=== PATIENT | male | born 1940 | race Caucasian/White ===

== ENCOUNTER 2019-08-03 08:54 | Inpatient (IN) | payer OTHER ==
[~2019-08-03] VITALS: Ht 172.7 cm; Wt 74.4 kg
[2019-08-03] MEDS ORDERED: ACETAMINOPHEN 500 MG TABLET ONE (09:30)
[2019-08-03] MEDS ORDERED: SODIUM CHLORIDE FLUSH 10ML SYR IVF ONE (09:30)
[2019-08-03] MEDS ORDERED: SODIUM CHLORIDE 0.9% 1,000ML IVBOLUS ONE ×2 (09:30→14:30)
[2019-08-03] MEDS ORDERED: ACETAMINOPHEN 500 MG TABLET PO ONE (09:30)
--- NOTE | 2019-08-03 09:37 | NUR ---
TASK RN: PT RESTING ON GURNEY. MARCOS. MEDICATED PER SEP.
--- NOTE | 2019-08-03 09:50 | NUR ---
REPORT FROM NAM PENA, ASSUME CARE OF PT AT THIS TIME. CONTINUE TO AWAIT LAB RESULTS.
[2019-08-03 09:51] LABS: MEAN CORPUSCULAR HGB CONC 33.1 g/dL (33.2-36.2); MEAN CORPUSCULAR VOLUME 87.7 fL (81-97); MEAN PLATELET VOLUME 8.3 fL (7.4-10.4); PLATELET COUNT 142 x10^3/uL (130-400); RED BLOOD COUNT 4.19 x10^6/uL (4.38-5.82); RED CELL DISTRIBUTION WIDTH 13.8 % (9.4-14.8)
--- NOTE | 2019-08-03 09:54 | NUR ---
REPORT GIVEN TO KAT
[2019-08-03 10:00] LABS: INTERNATIONAL NORMALIZED RATIO 1.5 (0.93-1.1); PROTHROMBIN TIME 15.5 Seconds (9.6-11.5)
[2019-08-03 10:02] LABS: ALBUMIN 3.2 g/dL (3.4-5.0); ANION GAP 9 mmol/L (5-15); CALCIUM 8.1 mg/dL (8.5-10.1); CHLORIDE 108 mmol/L (98-107)
[2019-08-03 10:03] LABS: RAPID INFLUENZA A Negative (Negative); RAPID INFLUENZA B Negative (Negative)
--- NOTE | 2019-08-03 10:03 | NUR ---
URINE COLLECTED/SENT TO LAB. VSS/UPDATED IN COMPUTER.
[2019-08-03 10:05] LABS: ALANINE AMINOTRANSFERASE 19 U/L (12-78); ALKALINE PHOSPHATASE 53 U/L (45-117); CREATININE 1.16 mg/dL (0.7-1.3); TOTAL PROTEIN 6.6 g/dL (6.4-8.2)
[2019-08-03 10:09] LABS: BASOPHILS # (AUTO) 0.01 x10^3/uL (0-0.1); BASOPHILS % (AUTO) 0 % (0-1); EOSINOPHILS % (AUTO) 0 % (1-7); LYMPHOCYTES # (AUTO) 0.16 x10^3/uL (1-3.4); LYMPHOCYTES % (AUTO) 3 % (22-44); MD SCAN; MONOCYTES # (AUTO) 0.03 x10^3/uL (0.2-0.8); MONOCYTES % (AUTO) 1 % (2-9); NEUTROPHILS # (AUTO) 4.51 x10^3/uL (1.8-6.8); NEUTROPHILS % (AUTO) 96 % (42-75)
[2019-08-03 10:29] LABS: CULTURE INDICATED? YES; MICROSCOPIC INDICATED
--- NOTE | 2019-08-03 10:29 | NUR ---
REPORT TO EVELINA, TRANSFER OF CARE AT THIS TIME.
--- NOTE | 2019-08-03 10:50 | NUR ---
I AM ASSUMING CARE OF THIS PT FROM LUDWIN (JEAN) AT THIS TIME. SBAR REPORT WAS EXCHANGED AT THE BEDSIDE.
[2019-08-03] MEDS ORDERED: PIPERACILLIN/TAZO/PMX 3.375GM 50 ML ONE (10:55)
[2019-08-03] MEDS ORDERED: MAGNESIUM SULFATE PMX 2GM/50ML 50 ML ONE (10:55)
[2019-08-03] MEDS ORDERED: SODIUM CHLORIDE 0.9%, 500ML IVBOLUS ONE (11:00)
[2019-08-03] MEDS ORDERED: MAGNESIUM SULFATE PMX 2GM/50ML 50 ML IV ONE (11:00)
[2019-08-03] MEDS ORDERED: PIPERACILLIN/TAZO/PMX 3.375GM 50 ML IV ONE (11:00)
--- NOTE | 2019-08-03 11:19 | NUR ---
HOSPITALIST IS AT THE BEDSIDE FOR CONSULT.
[2019-08-03] MEDS: INSULIN LISPRO 100 UNITS/ML, PEN SQ-INSULIN SCH ×3 (12:00→20:56)
[2019-08-03] MEDS ORDERED: ONDANSETRON 2MG/ML, 2ML IVPush PRN (12:00)
[2019-08-03] MEDS ORDERED: ACETAMINOPHEN 325 MG TABLET PO PRN (12:00)
--- NOTE | 2019-08-03 12:24 | NUR ---
HOSPITALIST INFORMED OF HYPOTENSION. WE WILL SET UP FOR CENTRAL LINE, AND PRESSORS. I WILL PASS OF TO TRAUMA RN. FAMILY IS AWARE, AND AGREEABLE.
--- NOTE | 2019-08-03 12:37 | NUR ---
PT MOVED TO TRAUMA FOR CENTRAL LINE PLACEMENT. MD AT BEDSIDE TO EXPLAIN PROCEDURE TO PT AND FAMILY. CONSENT SIGNED
[2019-08-03] MEDS: NOREPINEPHRINE 4 MG in SODIUM CHLORIDE 0.9% 246 ML IV PRN ×2 (12:56→18:40)
--- NOTE | 2019-08-03 12:57 | NUR ---
CENTRAL LINE COMPLETED. NOREPI STARTED.
--- NOTE | 2019-08-03 13:05 | NUR ---
REPORT GIVEN TO CANDIDA PENA ON CCU. PT READY FOR TRANSPORT
[2019-08-03] MEDS ORDERED: CEFTRIAXONE PMX 1GM/50ML 50 ML IV SCH (15:00)
[2019-08-03] MEDS: ENOXAPARIN 40 MG/0.4 ML SQ SCH (15:35)
[2019-08-03] MEDS: SODIUM CHLORIDE 0.9% 1,000 ML IV SCH (15:36)
[2019-08-03] MEDS: AMPICILLIN/SULBACTAM 3 GM in SODIUM CHLORIDE 0.9% 100 ML IV SCH ×2 (16:19→22:33)
[2019-08-03] MEDS: ATORVASTATIN 80 MG TABLET PO SCH (20:48)
[2019-08-04] MEDS: SODIUM CHLORIDE 0.9% 1,000 ML IV SCH (01:34)
[2019-08-04] MEDS: NOREPINEPHRINE 4 MG in SODIUM CHLORIDE 0.9% 246 ML IV PRN (01:34)
[2019-08-04 04:15] VITALS: BP 118/52
[2019-08-04] MEDS: AMPICILLIN/SULBACTAM 3 GM in SODIUM CHLORIDE 0.9% 100 ML IV SCH (05:17)
[2019-08-04 05:48] LABS: BASOPHILS # (AUTO) 0.04 x10^3/uL (0-0.1); BASOPHILS % (AUTO) 0 % (0-1); EOSINOPHILS % (AUTO) 1 % (1-7); LYMPHOCYTES # (AUTO) 1.24 x10^3/uL (1-3.4); LYMPHOCYTES % (AUTO) 11 % (22-44); MD NO; MEAN CORPUSCULAR HEMOGLOBIN 29.1 pg (27.5-34.5); MEAN CORPUSCULAR VOLUME 88.2 fL (81-97); MEAN PLATELET VOLUME 9.1 fL (7.4-10.4); MONOCYTES # (AUTO) 0.85 x10^3/uL (0.2-0.8); MONOCYTES % (AUTO) 8 % (2-9); NEUTROPHILS # (AUTO) 8.94 x10^3/uL (1.8-6.8); NEUTROPHILS % (AUTO) 80 % (42-75); PLATELET COUNT 138 x10^3/uL (130-400); RED BLOOD COUNT 3.93 x10^6/uL (4.38-5.82); RED CELL DISTRIBUTION WIDTH 14.4 % (9.4-14.8)
[2019-08-04 05:50] LABS: INTERNATIONAL NORMALIZED RATIO 1.45 (0.93-1.1)
[2019-08-04 05:53] LABS: ANION GAP 5 mmol/L (5-15); CALCIUM 7.2 mg/dL (8.5-10.1); CHLORIDE 114 mmol/L (98-107)
[2019-08-04 05:54] LABS: CREATININE 1.02 mg/dL (0.7-1.3)
[2019-08-04] MEDS: INSULIN LISPRO 100 UNITS/ML, PEN SQ-INSULIN SCH ×4 (07:00→21:03)
[2019-08-04] MEDS ORDERED: SODIUM PHOSPHATE 10 MMOL in SODIUM CHLORIDE 0.9% 500 ML IV ONE (07:30)
[2019-08-04] MEDS: PANTOPROZOLE 40MG TABLET PO SCH ×2 (08:30→10:00)
[2019-08-04] MEDS: TAMSULOSIN 0.4 MG CAP.ER.24H PO SCH (08:30)
[2019-08-04] MEDS: CEFTRIAXONE PMX 1GM/50ML 50 ML IV SCH (08:31)
[2019-08-04] MEDS ORDERED: PANT40TA3 PO (09:45)
[2019-08-04] MEDS ORDERED: METO25TA35 PO (09:45)
[2019-08-04] MEDS ORDERED: CLOP75TA PO (09:45)
[2019-08-04] MEDS ORDERED: GABA300C10 PO (09:45)
[2019-08-04] MEDS ORDERED: TAMS-11 PO (09:45)
[2019-08-04] MEDS ORDERED: FINA5TAB4 PO (09:45)
[2019-08-04] MEDS ORDERED: ATOR-2 PO (09:45)
[2019-08-04] MEDS ORDERED: LISI5TAB7 PO (09:45)
[2019-08-04] MEDS ORDERED: METF850T10 PO (09:45)
[2019-08-04] MEDS ORDERED: GLIP10TA13 PO (09:45)
[2019-08-04] MEDS: GABAPENTIN 300 MG CAPSULE PO SCH ×2 (10:51→20:50)
[2019-08-04] MEDS: CLOPIDOGREL 75 MG TABLET PO SCH (10:51)
[2019-08-04] MEDS: FINASTERIDE 5 MG TABLET PO SCH (10:52)
[2019-08-04] MEDS: ENOXAPARIN 40 MG/0.4 ML SQ SCH (12:26)
[2019-08-04 14:00] VITALS: BP 142/69
[2019-08-04 20:00] VITALS: BP 144/70
[2019-08-04] MEDS: ATORVASTATIN 80 MG TABLET PO SCH (20:50)
[2019-08-04] MEDS ORDERED: ATORVASTATIN 80 MG TABLET PO SCH (21:00)
[2019-08-05 02:00] VITALS: BP 96/53
[2019-08-05 04:35] LABS: BASOPHILS # (AUTO) 0.03 x10^3/uL (0-0.1); BASOPHILS % (AUTO) 1 % (0-1); EOSINOPHILS # (AUTO) 0.13 x10^3/uL (0-0.4); EOSINOPHILS % (AUTO) 2 % (1-7); LYMPHOCYTES # (AUTO) 0.73 x10^3/uL (1-3.4); LYMPHOCYTES % (AUTO) 12 % (22-44); MD NO; MEAN CORPUSCULAR HEMOGLOBIN 29.3 pg (27.5-34.5); MEAN CORPUSCULAR VOLUME 88.8 fL (81-97); MEAN PLATELET VOLUME 8.8 fL (7.4-10.4); MONOCYTES # (AUTO) 0.55 x10^3/uL (0.2-0.8); MONOCYTES % (AUTO) 10 % (2-9); NEUTROPHILS # (AUTO) 4.41 x10^3/uL (1.8-6.8); NEUTROPHILS % (AUTO) 75 % (42-75); PLATELET COUNT 112 x10^3/uL (130-400); RED BLOOD COUNT 3.82 x10^6/uL (4.38-5.82)
[2019-08-05] MEDS: INSULIN LISPRO 100 UNITS/ML, PEN SQ-INSULIN SCH ×4 (06:40→20:10)
[2019-08-05 07:00] VITALS: BP 98/64
[2019-08-05] MEDS: PANTOPROZOLE 40MG TABLET PO SCH ×2 (08:41)
[2019-08-05] MEDS: TAMSULOSIN 0.4 MG CAP.ER.24H PO SCH (08:41)
[2019-08-05] MEDS: CLOPIDOGREL 75 MG TABLET PO SCH (08:41)
[2019-08-05] MEDS: CEFTRIAXONE PMX 1GM/50ML 50 ML IV SCH (08:41)
[2019-08-05] MEDS: FINASTERIDE 5 MG TABLET PO SCH (08:41)
[2019-08-05] MEDS: GABAPENTIN 300 MG CAPSULE PO SCH ×2 (08:41→20:09)
[2019-08-05] MEDS: ENOXAPARIN 40 MG/0.4 ML SQ SCH (11:31)
[2019-08-05 12:42] VITALS: BP 130/78
[2019-08-05] MEDS ORDERED: RIVAROXABAN 20 MG TABLET PO SCH (17:00)
[2019-08-05 18:52] VITALS: BP 158/79
[2019-08-05] MEDS: ATORVASTATIN 80 MG TABLET PO SCH (20:09)
[2019-08-06 01:59] VITALS: BP 101/61
[2019-08-06 06:57] VITALS: BP 159/80
[2019-08-06] MEDS: CLOPIDOGREL 75 MG TABLET PO SCH (08:45)
[2019-08-06] MEDS: TAMSULOSIN 0.4 MG CAP.ER.24H PO SCH (08:47)
[2019-08-06] MEDS: GABAPENTIN 300 MG CAPSULE PO SCH (08:48)
[2019-08-06] MEDS: PANTOPROZOLE 40MG TABLET PO SCH (08:50)
[2019-08-06] MEDS: CEFTRIAXONE PMX 1GM/50ML 50 ML IV SCH (08:54)
[2019-08-06] MEDS: FINASTERIDE 5 MG TABLET PO SCH (08:56)
[2019-08-06] MEDS: INSULIN LISPRO 100 UNITS/ML, PEN SQ-INSULIN SCH ×2 (09:53→12:49)
[2019-08-06] MEDS ORDERED: CEFD300C37 PO (12:03)
[2019-08-06] MEDS ORDERED: RIVA20TA PO (12:03)
[2019-08-06] MEDS ORDERED: FLU VACC QS2019-20 36MOS UP/PF 0.5 ML IM-VACC ONE (13:30)
[2019-08-06 14:02] VITALS: BP 150/79
== END 2019-08-06 16:23 | disposition home or self-care (01) | DRG 871 ==
LOC: EDBD 08:54 → SUATTDRO 11:00 → ED 11:03 → EDIP 11:34 → CCU 13:18 → 5SO 08-05 14:16
PROVIDERS: ADMIT Hospitalist; ATTEND Internal Medicine
PROC: 02HV33Z Insertion of Infusion Device into Superior Vena Cava, Percutaneous Approach (ICD-10-PCS; principal; 2019-08-03)
PROC: B548ZZA Ultrasonography of Superior Vena Cava, Guidance (ICD-10-PCS; 2019-08-03)
DX: A41.9 Sepsis, unspecified organism (principal); G93.41 Metabolic encephalopathy; R65.21 Severe sepsis with septic shock; N39.0 Urinary tract infection, site not specified; I48.20 Chronic atrial fibrillation, unspecified; E11.9 Type 2 diabetes mellitus without complications; I10 Essential (primary) hypertension; E83.42 Hypomagnesemia; I25.10 Atherosclerotic heart disease of native coronary artery without angina pectoris; I35.8 Other nonrheumatic aortic valve disorders; I45.10 Unspecified right bundle-branch block; K21.9 Gastro-esophageal reflux disease without esophagitis; N40.0 Benign prostatic hyperplasia without lower urinary tract symptoms; Z79.01 Long term (current) use of anticoagulants; Z87.891 Personal history of nicotine dependence; Z95.5 Presence of coronary angioplasty implant and graft; Z23 Encounter for immunization; Z79.4 Long term (current) use of insulin
CPT/HCPCS: 36415; 36556; 71045; 80048; 80053; 81001; 82962; 83605; 83735; 84100; 84145; 85025; 85610; 87040; 87077; 87081; 87086; 87186; 87400; 90686; 93005; 93306; 96361; 96374; 96375; G0378; J0295; J0696; J1650; J2543; J1815; J3475; J7030; J7040; J7050